=== PATIENT | female | born 1980 | race Caucasian/White ===

== ENCOUNTER 2017-03-07 21:10 | Emergency (ER) | payer OTHER ==
[2017-03-08 00:20] VITALS: BP 124/78
== END 2017-03-08 00:20 | disposition home or self-care (01) ==
LOC: ED 21:10
DX: J32.9 Chronic sinusitis, unspecified (principal); R51 Headache

== ENCOUNTER 2018-04-17 19:39 | Emergency (ER) | payer OTHER ==
[~2018-04-17] VITALS: Ht 177.8 cm; Wt 102.1 kg
[2018-04-17 19:40] VITALS: Ht 177.8 cm; Wt 102.1 kg
[2018-04-17 20:50] VITALS: BP 136/86
== END 2018-04-17 21:29 | disposition home or self-care (01) ==
LOC: ED 19:39
DX: M54.2 Cervicalgia (principal); R20.2 Paresthesia of skin; Z90.89 Acquired absence of other organs